=== PATIENT | female | born 1950 | race Caucasian/White ===

== ENCOUNTER → 2018-03-02 | Outpatient (CLI) | payer OTHER | LOC: FIMAGING 12:58 | PROVIDERS: ATTEND Orthopaedic Surgery | DX: Z01.818 Encounter for other preprocedural examination (principal); M17.11 Unilateral primary osteoarthritis, right knee ==

== ENCOUNTER 2018-03-23 11:08 | Observation (INO) | payer OTHER ==
--- NOTE | 2018-03-23 07:04 | PDHPUP ---
History & Physical Update H&P update statement: This history and physical update is based on an assessment of the patient which was completed after admission or registration (within 24 hours), but prior to the surgery/procedure. H&P update: H&P reviewed & patient examined, no change in patient's condition since H&P completed
[~2018-03-23 11:08] MED LIST: ROPIVACAINE 0.2% 80 MG, EPINEPHrine 0.2 MG, KETOROLAC TROMETHAMINE 30 MG in SYRINGE 0 ML IU ONE; TRANEXAMIC ACID 3,000 MG in NS (SYRINGE) 50 ML IRR ONE
[2018-03-23] MEDS ORDERED: ACETAMINOPHEN 325 MG TAB PO ONE (11:20)
[2018-03-23] MEDS ORDERED: ceFAZolin 2 GM/DEXTROSE 100 ML IV ONE (11:20)
[2018-03-23] MEDS ORDERED: DEXAMETHASONE 4 MG/ML VIAL IVP ONE (11:20)
[2018-03-23] MEDS ORDERED: FAMOTIDINE 20 MG TAB PO ONE (11:20)
[2018-03-23] MEDS ORDERED: LR 1,000 ML IV ONE (11:21)
[2018-03-23] MEDS ORDERED: LIDOCAINE 2% 5 ML SDV ONE (13:02)
[2018-03-23] MEDS ORDERED: MIDAZOLAM 2 MG/2 ML VIAL ONE (13:02)
[2018-03-23] MEDS ORDERED: PROPOFOL 200 MG/20 ML VIAL ONE (13:03)
[2018-03-23] MEDS ORDERED: ONDANSETRON 4 MG/2 ML VIAL IVP PRN ×2 (13:09→13:44)
[2018-03-23] MEDS ORDERED: NALOXONE HCL 0.4 MG/ML INJ IVP PRN (13:09)
[2018-03-23] MEDS ORDERED: fentaNYL 100 MCG/2 ML INJ IVP PRN (13:09)
[2018-03-23] MEDS ORDERED: DEXAMETHASONE 4 MG/ML VIAL IVP PRN (13:09)
[2018-03-23] MEDS ORDERED: LR 500 ML IV PRN (13:09)
[2018-03-23] MEDS ORDERED: ALBUTEROL 3 ML DEYVIAL IH PRN (13:09)
--- NOTE | 2018-03-23 13:09 | PDANEPAE ---
ANE Past Medical History - Cardiovascular History Hx Hypertension: No Hx Arrhythmias: No Hx Chest Pain: No Hx Coronary Artery / Peripheral Vascular Disease: No Hx CHF / Valvular Disease: No Hx Palpitations: No - Pulmonary History Hx COPD: No Hx Asthma/Reactive Airway Disease: No Hx Recent Upper Respiratory Infection: No Hx Oxygen in Use at Home: No Hx Sleep Apnea: Yes Sleep Apnea Screening Result - Last Documented: Positive Pulmonary History Comment: CLARISA uses C-PAP - Neurologic History Hx Cerebrovascular Accident: No Hx Seizures: No Hx Dementia: No - Endocrine History Hx Diabetes: No - Renal History Hx Renal Disorders: No - Liver History Hx Hepatic Disorders: No - Neurological & Psychiatric Hx Hx Neurological and Psychiatric Disorders: Yes Neurological / Psychiatric History Comment: depression - Cancer History Hx Cancer: Yes Cancer History Comment: basal cell - Congenital Disorder History Hx Congenital Disorders: No - GI History Hx Gastrointestinal Disorders: Yes Gastrointestinal History Comment: reflux - Other Health History Other Health History: none - Chronic Pain History Chronic Pain: Yes (right foot) - Surgical History Prior Surgeries: bone graft to right foot. right knee scope 2013 ANE Review of Systems Review of Systems: - Exercise capacity METS (RN): 4 METS ANE Patient History - Allergies Allergies/Adverse Reactions: metronidazole [From Flagyl] Allergy (Intermediate, Verified 03/14/18 11:20) balance and speech gets messed up Penicillins Allergy (Mild, Verified 03/14/18 11:20) Other-Enter Comments Sulfa (Sulfonamide Antibiotics) Allergy (Mild, Verified 03/14/18 11:20) Other-Enter Comments - Home Medications Home Medications: Zolpidem Tartrate [Ambien] 5 mg PO HS PRN 10/30/15 [Last Taken 3 Days Ago ~03/20] ARIPiprazole [Abilify 2 mg (*)] 1 mg PO DAILY 03/11/18 [Last Taken 03/23/18] FLUoxetine [Prozac 20 MG (*)] 20 mg PO DAILY 03/11/18 [Last Taken 03/23/18] Levothyroxine [Synthroid 50 mcg (*)] 50 mcg PO DAILY06 03/11/18 [Last Taken ] - NPO status NPO Since - Liquids (Date): 03/23/18 NPO Since - Liquids (Time): 07:00 NPO Since - Solids (Date): 06/26/18 NPO Since - Solids (Time): 21:00 - Smoking Hx Smoking Status: Never smoked - Family Anes Hx Family Hx Anesthesia Complications: none ANE Labs/Vital Signs - Vital Signs Blood Pressure: 113/58 Heart Rate: 64 Respiratory Rate: 16 O2 Sat (%): 98 Height: 154.94 cm Weight: 53.524 kg ANE Physical Exam - Airway Neck exam: FROM Mouth exam: small mouth opening, abnormal chin - Pulmonary Pulmonary: no respiratory distress, no rales or rhonchi, clear to auscultation - Cardiovascular Cardiovascular: regular rate and rhythym, no murmur, rub, or gallop - ASA Status ASA Status: II ANE Anesthesia Plan Anesthesia Plan: spinal Regional Anesthesia: adductor canal FNB
[2018-03-23] MEDS ORDERED: BISACODYL 10 MG SUPP PR PRN (13:44)
[2018-03-23] MEDS ORDERED: TEMAZEPAM 15 MG CAP PO PRN (13:44)
[2018-03-23] MEDS ORDERED: LACTULOSE 20 GM/30 ML UDCUP PO PRN (13:44)
[2018-03-23] MEDS ORDERED: POLYETHYLENE GLYCOL 3350 17 GM PKT PO PRN (13:44)
[2018-03-23] MEDS ORDERED: PROMETHAZINE HCL 25 MG SUPPR PR PRN (13:44)
[2018-03-23] MEDS ORDERED: METOCLOPRAMIDE 10 MG/2 ML VIAL IVP PRN (13:44)
[2018-03-23] MEDS ORDERED: MAGNESIUM HYDROXIDE 30 ML UDCUP PO PRN (13:44)
[2018-03-23] MEDS ORDERED: PROMETHAZINE HCL 25 MG/ML INJ IVP PRN (13:44)
[2018-03-23] MEDS ORDERED: ONDANSETRON DISINTEGRATING 4 MG TAB PO PRN (13:44)
[2018-03-23] MEDS ORDERED: CYCLOBENZAPRINE 10 MG TAB PO PRN (13:44)
[2018-03-23] MEDS ORDERED: DIPHENOXYLATE/ATROPINE LOMOTIL 1 TAB PO PRN (13:44)
[2018-03-23] MEDS ORDERED: diphenhydrAMINE 25 MG CAP PO PRN (13:44)
[2018-03-23] MEDS ORDERED: ZOLPIDEM TARTRATE 5 MG TAB PO PRN (13:45)
[2018-03-23] MEDS ORDERED: ROPIVACAINE HCL 150 MG/30 ML INJ ONE (13:51)
[2018-03-23] MEDS ORDERED: PHENYLEPHRINE HCL 100 MCG/ML SYR ONE (13:51)
[2018-03-23] MEDS ORDERED: LR 1,000 ML IV SCH (14:00)
--- NOTE | 2018-03-23 14:31 | POSTOPPROG ---
Post Op Note Date of Operation: 03/23/18 Surgeon: Esequiel Montenegro Business Solution Analyst: kym montenegro Anesthesiologist: dr. turner Anesthesia: Spinal, Other (Specify) (adductor canal block) Pre-op Diagnosis: right knee medial OA Post-op Diagnosis: same Indication: right knee pain Procedure: R med MPL robot assisted, computer navigation Findings: severe medial knee OA Inf/Abcess present in the surg proc area at time of surgery?: No EBL: 50-100
--- NOTE | 2018-03-23 14:44 | POSTANESTH ---
Post Anesthetic Evaluation Cardiovascular Status: Normal, Stable, Similar to Pre-Op Cond Respiratory Status: Normal, Stable, Similar to Pre-op Cond. Level of Consciousness/Mental Status: Mildly Sleepy, Arousable Pain Control: Adequate, Prn Tx Ordered Nausea/Vomiting Control: Adequate, Prn Tx Ordered Complications Possibly Related to Anesthesia: None Noted
[2018-03-23] MEDS: oxyCODONE IR 5 MG TAB PO PRN ×2 (15:55→16:59)
[2018-03-23] MEDS: ACETAMINOPHEN 325 MG TAB PO SCH (16:57)
[2018-03-23] MEDS: ASPIRIN 81 MG CHEWABLE TAB PO SCH (20:46)
[2018-03-23] MEDS: SENNOSIDES/DOCUSATE SODIUM TAB PO SCH (20:46)
[2018-03-23] MEDS: FAMOTIDINE 20 MG TAB PO SCH (20:46)
[2018-03-23] MEDS: ceFAZolin 2 GM/DEXTROSE 100 ML IV SCH (20:46)
[2018-03-24] MEDS: ACETAMINOPHEN 325 MG TAB PO SCH ×2 (00:22→05:20)
--- NOTE | 2018-03-24 05:11 | GOP ---
[f rep st] OPERATIVE REPORT DATE OF OPERATION: 03/23/2018 SURGEON: Ronaldo Dennis MD NEUROSURGEON: Ronaldo Dennis MD LEAD MOBILE DEVELOPER: FRANKIE Mackay ANESTHESIA: Spinal. PREOPERATIVE DIAGNOSIS: Right knee osteoarthritis. POSTOPERATIVE DIAGNOSIS: Right knee osteoarthritis. PROCEDURE PERFORMED: Right medial compartment partial knee replacement with computer navigation and robotic assist. FINDINGS: ESTIMATED BLOOD LOSS: 30 mL. INDICATIONS: This is a 67-year-old female with progressive pain of the right knee unresponsive to co nservative care. Risks and benefits of surgical intervention were explained in detail. DESCRIPTION OF PROCEDURE: The patient was brought to the operating room and placed on the table in s upine position. Spinal anesthesia was induced without difficulty. A pneumatic tourniquet was applie d about the right proximal thigh and the leg was prepped and draped in sterile fashion. Attention wa s turned first to the distal aspect of the right femur. At 3 cm proximal to the lateral rise of the femur, 2 percutaneous half pins were placed for fixation of the femoral array. In a similar fashion, 2 pins were placed anterolateral on the tibia for fixation of the tibial array. External land evelina ng and registration of the hip center was performed without difficulty. After exsanguination by elevation, the tourniquet was inflated to 250 mmHg. Incision was made from the tibial tuberosity to the superior pole of the patella. Dissection was car ried out through the subcutaneous tissue to the deep fascia using Bov[employer] electrocautery for hemostasis . Medial parapatellar arthrotomy was carried out to the superior pole of the patella. The medial co llateral ligament was elevated and the infrapatellar fat pad was resected. Internal femoral and tibi al registration was carried out without difficulty and the femoral and tibial checkpoints were placed and verified for accuracy. Attention was turned to the femur. The foot print for the size 2 femoral component was cut with the 6 mm bur using the [employer] robotic system and verified for accuracy against the CT based plan. The hole was cut for the femoral post. In a similar fashion, the 6 mm bur was used to cut the foot print for t he size 2 tibial component using the [employer] system and verified for accuracy against the CT based plan. Attention was turned to the posterior aspect of the knee and remnants of the medial meniscus were exc ised. The posterior capsule was injected with ropivacaine, epinephrine and Toradol. Trial reduction was carried out and there was excellent range of motion, alignment and stability using the size 2 fe moral component and the size 2 tibial component. All trials were then removed. The joint was thoroughly irrigated and carefully dried. One package o f cement and 1 gram of vancomycin were mixed in the vacuum mixer and placed on the fixation surfaces of all components. The components were implanted and all excess cement was thoroughly removed. Impla nt placement was verified against the CT view plan and found to be excellent. The tourniquet was deflated and all bleeders were coagulated. The wound was thoroughly irrigated and closed using interrupted sutures of 2-0 Vicryl for the joint capsule. The subcutaneous was closed w ith 3-0 Vicryl and the skin with 4-0 Monocryl. 2 x 8 mm polyethylene. Dermabond and Steri-Strips wer e applied, followed by a compressive dressing. The patient was then moved from the operating room to the recovery room in good condition, having tolerated the procedure well. PATHOLOGY: Severe medial compartment osteoarthritis. CASE CLASSIFICATION: Clean. /[id number]/MODL
[2018-03-24] MEDS: ceFAZolin 2 GM/DEXTROSE 100 ML IV SCH (05:19)
[2018-03-24] MEDS ORDERED: LEVOTHYROXINE 50 MCG TAB PO SCH (06:00)
[2018-03-24 07:36] VITALS: BP 103/53
[2018-03-24] MEDS: FAMOTIDINE 20 MG TAB PO SCH (07:58)
[2018-03-24] MEDS: SENNOSIDES/DOCUSATE SODIUM TAB PO SCH (07:58)
[2018-03-24] MEDS: ASPIRIN 81 MG CHEWABLE TAB PO SCH (07:59)
[2018-03-24] MEDS ORDERED: ARIPiprazole 2 MG TAB PO SCH (09:00)
[2018-03-24] MEDS ORDERED: FLUoxetine 20 MG CAP PO SCH (09:00)
[2018-03-24] MEDS: oxyCODONE IR 5 MG TAB PO PRN (11:11)
--- NOTE | 2018-03-24 17:08 | SOAPPROG ---
SOAP Progress Note Assessment/Plan: Assessment: Patient is doing well POD 1 s/p R med MPL Pain management: pain is well controlled on oral pain meds. VTE ppx: recommend aspirin 81 mg BID for 4 weeks, cont NETO and SCDs Anemia: level is expected initially postop. Asymptomatic. Continue to monitor D/c planning: d/c to home today pending release from PT Plan: 03/24/18 17:07 Subjective: patient is doing well today, denies SOB, chest pain and N/V. Objective: Vital Signs Temp Pulse Resp BP Pulse Ox 36.7 C 50 L 14 103/53 L 97 03/24/18 07:34 03/24/18 07:34 03/24/18 07:34 03/24/18 07:34 03/24/18 07:34 Laboratory Results 03/24/18 04:39 03/23/18 03/24/18 03/25/18 05:59 05:59 05:59 Intake Total 2365 200 Output Total 920 Balance 1445 200 RLE; incision dressing is clean and dry, NVI, +pf/df ICD10 Worksheet Patient Problems: Problems Problem Status Onset Primary localized osteoarthritis of right knee Acute
== END 2018-03-24 14:22 | disposition home or self-care (01) ==
LOC: F3N 11:08
PROVIDERS: ADMIT Orthopaedic Surgery; ATTEND Orthopaedic Surgery
PROC: 0SRC0JZ Replacement of Right Knee Joint with Synthetic Substitute, Open Approach (ICD-10-PCS; principal; 2018-03-23 13:15)
DX: M17.11 Unilateral primary osteoarthritis, right knee (principal)
CPT/HCPCS: 27446; 73560; 97161; C1713; C1776; G0378; G8978; G8979; G8980; J0171; J0690; J1100; J1885; J2250; J2370; J2704; J2795

== ENCOUNTER → 2018-09-13 | Outpatient (CLI) | payer OTHER | LOC: FIMAGING 16:07 | PROVIDERS: ATTEND Physician Assistant | DX: R10.32 Left lower quadrant pain (principal); N83.291 Other ovarian cyst, right side; N83.202 Unspecified ovarian cyst, left side; D25.2 Subserosal leiomyoma of uterus; R93.89 Abnormal findings on diagnostic imaging of other specified body structures ==

== ENCOUNTER → 2018-12-02 | Outpatient (CLI) | payer OTHER | LOC: FIMAGING 16:10 | PROVIDERS: ATTEND Registered Nurse | DX: J40 Bronchitis, not specified as acute or chronic (principal) ==

== ENCOUNTER → 2019-02-09 | Outpatient (CLI) | payer OTHER | LOC: BMCIMAGING 09:58 | PROVIDERS: ATTEND Family Medicine | DX: M79.604 Pain in right leg (principal) ==